=== PATIENT | male | born 1945 | race Caucasian/White ===

== ENCOUNTER 2018-07-21 09:11 | Day surgery (SDC) | payer OTHER ==
[2018-07-21] MEDS ORDERED: LIDOCAINE 1% 2 ML INJ ID PRN (09:29)
[2018-07-21] MEDS ORDERED: LR 1,000 ML IV ONE (09:29)
--- NOTE | 2018-07-21 10:36 | PDGENHP ---
History & Physical Chief Complaint: abnl imaging History of Present Illness: 72 year old male presents for evaluation of nonsmall cell lung cancer presents for evaluation of a pancreatic mass. Pertinent Past, Social, Family History: See anesthesiology note for details. Relevant Physical Exam: HEENT:anicteric. CV: RRR +s1s2. Lungs: CTAB. Abd: soft, nt, + bs. No g/r Cardiorespiratory Assessment: ASA 3
[2018-07-21] MEDS ORDERED: INDOMETHACIN 50 MG SUPP PR PRN (10:37)
[2018-07-21] MEDS ORDERED: NS 500 ML IV SCH (10:45)
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
[2018-07-21] MEDS ORDERED: PROPOFOL/EMULSION 500 MG/50 ML BOTTLE IV ONE (10:54)
[2018-07-21] MEDS ORDERED: fentaNYL 100 MCG/2 ML INJ ONE ×2 (10:54→12:30)
[2018-07-21] MEDS ORDERED: PROPOFOL 200 MG/20 ML VIAL ONE (10:54)
[2018-07-21] MEDS ORDERED: ONDANSETRON 4 MG/2 ML VIAL ONE (12:10)
[2018-07-21] MEDS ORDERED: ROCURONIUM 50 MG/5 ML VIAL ONE (12:10)
[2018-07-21] MEDS ORDERED: DEXAMETHASONE 4 MG/ML VIAL ONE (12:23)
[2018-07-21] MEDS ORDERED: NALOXONE HCL 0.4 MG/ML INJ IVP PRN (12:28)
[2018-07-21] MEDS ORDERED: ONDANSETRON 4 MG/2 ML VIAL IVP PRN (12:28)
[2018-07-21] MEDS ORDERED: PROMETHAZINE HCL 25 MG/ML INJ IVP PRN (12:28)
[2018-07-21] MEDS ORDERED: MEPERIDINE 25 MG/0.5 ML AMP IVP PRN (12:28)
[2018-07-21] MEDS ORDERED: fentaNYL 100 MCG/2 ML INJ IVP PRN (12:28)
--- NOTE | 2018-07-21 12:31 | POSTANESTH ---
Post Anesthetic Evaluation Cardiovascular Status: Normal, Stable Respiratory Status: Normal, Stable Level of Consciousness/Mental Status: Can Participate in Eval Pain Control: Adequate, Prn Tx Ordered Nausea/Vomiting Control: Inadeq, Add Tx Reqired Complications Possibly Related to Anesthesia: None Noted
--- NOTE | 2018-07-21 13:07 | GIREPORT ---
[facility] Surgical Services - Endoscopy Department Patient Name: Nayan Agudelo Procedure Date: 07/21/2018 10:28 AM Patient Type: Outpatient Attending MD/ ER Physician: Jayesh Quiroga MD Procedure: Upper EUS Indications: Suspected mass in pancreas on MRI, Abdominal pain in the right upper quadrant, Nausea, Weight loss Patient Profile: 72 year old male with a history of non small cell lung cancer presents for evaluation of abnormal imaging. He had a recent MRI with a possible mas s lesion seen in the head of the pancreas. Providers: Jayesh Quiroga MD Medicines: General Anesthesia Complications: No immediate complications. Estimated blood loss: Minimal. Description of Procedure: After obtaining informed consent, the endoscope was passed under direct vision. Throughout the procedure, the patient's blood pressure, pulse, and oxygen saturations were monitored continuously. The Endosonoscope was introduced through the mouth, and advanced to the second part of duoden um. The Endosonoscope was introduced through the mouth, and advanced to the second part of duodenum. The upper EUS was accomplished without difficu lty. The esophagus, stomach, and duodenum were visualized endosonographicall y. The patient tolerated the procedure well. Findings: Endoscopic Finding : The examined esophagus was normal. One cratered gastric ulcer with no stigmata of bleeding was found in th e gastric body. The lesion was 7 mm in largest dimension. Biopsies were t aken with a cold forceps for histology. Patchy mildly erythematous mucosa was found in the entire examined stom ach. Biopsies were taken with a cold forceps for histology. The examined duodenum was normal. Endosonographic Finding : An irregular mass was identified in the pancreatic head. The mass was hypoechoic. The mass measured 15 mm by 18 mm in maximal cross-sectional diameter. The endosonographic borders were poorly-defined. No vessel involvment was visualized. The remainder of the pancreas was examined. The endosonographic appearance of parenchyma and the upstream pancreatic du ct indicated no duct dilation. Fine needle aspiration for cytology was performed. Color Doppler imaging was utilized prior to needle puncture to confirm a lack of significant vascular structures within the needle pat h. Fine needle aspiration was performed with the 25 gauge needle using a transduodenal approach. A garnishment specialist was present and performed a prelim inary cytologic examination. Final cytology results are pending. Fine needle biopsy was performed. Color Doppler imaging was utilized prior to needl e puncture to confirm a lack of significant vascular structures within th e needle path. Two passes were made with the 22 gauge ultrasound biopsy n eedle using a transduodenal approach. A visible core of tissue was obtained. There was no sign of significant endosonographic abnormality in the visualized portion of the liver. No masses were identified. There was no sign of significant endosonographic abnormality in the com mon bile duct and in the gallbladder. No lymphadenopathy seen. Estimated Blood Loss: Estimated blood loss was minimal. Post Op Diagnosis: - Erythematous mucosa in the stomach. Biopsied. - Normal esophagus. - Gastric ulcers with no stigmata of bleeding. Biopsied. - Normal examined duodenum. - A mass was identified in the pancreatic head. Fine needle aspiration performed. Fine needle biopsy performed. - There was no evidence of significant pathology in the visualized port ion of the liver. - There was no sign of significant pathology in the common bile duct an d in the gallbladder. - Etiology? Unsure of mass. Appeared atypical for primary adenocarcinom a or even metastasis. FNA and FNB performed. Recommendation: - Discharge patient to home (with escort). - Use a proton pump inhibitor PO. - Clear liquid diet. - No aspirin, ibuprofen, naproxen, or other non-steroidal anti-inflamma tory drugs. - Continue present medications. - Await cytology results and await path results. - Thank you for allowing me to participate in the care of your patient. Attending Participation: I personally performed the entire procedure. Jayesh Quiroga MD Jayesh Quiroga MD 07/21/2018 1:06:57 PM This report has been signed electronicallyJayesh Quiroga MD Number of Addenda: 0 Note Initiated On: 07/21/2018 10:28 AM [email or web address]
[2018-07-21 14:21] VITALS: BP 143/82
== END 2018-07-21 14:10 | disposition home or self-care (01) ==
LOC: FSGY 09:11
PROVIDERS: ATTEND Internal Medicine Gastroenterology
DX: C78.89 Secondary malignant neoplasm of other digestive organs (principal); C34.90 Malignant neoplasm of unspecified part of unspecified bronchus or lung; K25.9 Gastric ulcer, unspecified as acute or chronic, without hemorrhage or perforation
CPT/HCPCS: J1100; J2405; J2704; J3010